=== PATIENT | female | born 1990 ===

== ENCOUNTER 2017-12-16 16:59 | Emergency (ER) | payer MEDICAID, OTHER ==
[2017-12-16 17:19] VITALS: BP 132/84; PULSE 82; RESP 18; TEMP 98.7; O2SAT 99
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
== END 2017-12-16 19:21 | disposition home or self-care (01) ==
LOC: H.ER 16:59
DX: S13.4XXA Sprain of ligaments of cervical spine, initial encounter (principal); S40.819A Abrasion of unspecified upper arm, initial encounter; V43.52XA Car driver injured in collision with other type car in traffic accident, initial encounter; Y92.410 Unspecified street and highway as the place of occurrence of the external cause